=== PATIENT | male | born 1970 | race Caucasian/White ===

== ENCOUNTER 2017-05-07 12:09 | Emergency (ER) | payer SELFPAY ==
[~2017-05-07] VITALS: Ht 182.9 cm; Wt 147.6 kg
[2017-05-07] MEDS ORDERED: PERCOCET 10/1 TABLET PO (13:43)
[2017-05-07 14:23] VITALS: BP 168/91
== END 2017-05-07 14:24 | disposition home or self-care (01) ==
LOC: EME 12:09 → RME 12:09
DX: S22.20XD Unspecified fracture of sternum, subsequent encounter for fracture with routine healing (principal); S22.43XD Multiple fractures of ribs, bilateral, subsequent encounter for fracture with routine healing
CPT/HCPCS: 99281; 99284